=== PATIENT | female | born 1955 | race African-American/Black ===

== ENCOUNTER 2016-08-03 17:01 | Emergency (ER) | payer OTHER ==
[~2016-08-03] VITALS: Ht 162.6 cm; Wt 108.9 kg
[2016-08-03 17:15] VITALS: BP 156/68
--- NOTE | 2016-08-03 19:52 | NUR ---
PT TAKEN TO [facility]
--- NOTE | 2016-08-03 20:12 | NUR ---
PA EVALUATING PATIENT
[2016-08-03] MEDS ORDERED: IBUPROFEN 800 MG TAB PO ONE (20:15)
[2016-08-03 20:56] VITALS: BP 172/99
--- NOTE | 2016-08-03 20:56 | NUR ---
Patient discharged with v/s stable. Written and verbal after care instructions given and explained. Patient alert, oriented and verbalized understanding of instructions. Ambulatory with steady gait. All questions addressed prior to discharge. ID band removed. Patient advised to follow up with PMD. Rx of IBUPROFEN 800MG given. Patient educated on indication of medication including possible reaction and side effects. Opportunity to ask questions provided and answered.
== END 2016-08-03 20:56 | disposition home or self-care (01) ==
LOC: MED 17:01
DX: S66.911A Strain of unspecified muscle, fascia and tendon at wrist and hand level, right hand, initial encounter (principal); S83.92XA Sprain of unspecified site of left knee, initial encounter; W18.30XA Fall on same level, unspecified, initial encounter; Y93.89 Activity, other specified; Y92.89 Other specified places as the place of occurrence of the external cause; Y99.8 Other external cause status
CPT/HCPCS: 73110; 73562; 99284

== ENCOUNTER 2019-07-26 11:20 | Emergency (ER) | payer OTHER, SELFPAY ==
[~2019-07-26] VITALS: Ht 162.6 cm; Wt 99.8 kg
[2019-07-26 11:22] VITALS: BP 149/87
--- NOTE | 2019-07-26 11:55 | NUR ---
DAUGHTER EXPOSED TO FRIEND WITH POSITIVE COVIG-19 ; HAS COUGH AND FEVER PT CONCERNED SHE MAY TOO BEEN EXPOSED
--- NOTE | 2019-07-26 12:09 | NUR ---
covid swab collected and walked to lab
[2019-07-26 12:12] VITALS: BP 149/87
--- NOTE | 2019-07-26 12:12 | NUR ---
Patient discharged with v/s stable. Written and verbal after care instructions given and explained. Patient verbalized understanding. Ambulatory with steady gait. All questions addressed prior to discharge. Advised to follow up with PMD.
== END 2019-07-26 12:12 | disposition home or self-care (01) ==
LOC: EEVIPCON 11:20 → MED 11:20
DX: J06.9 Acute upper respiratory infection, unspecified (principal); Z20.828 Contact with and (suspected) exposure to other viral communicable diseases; E11.9 Type 2 diabetes mellitus without complications; I10 Essential (primary) hypertension; Z98.890 Other specified postprocedural states
CPT/HCPCS: 99283; U0003